=== PATIENT | female | born 1965 | race Caucasian/White ===

== ENCOUNTER 2017-08-19 08:43 | Day surgery (SDC) | payer BC ==
[2017-08-17 14:51] VITALS: BMI 42.0
[~2017-08-19 08:43] MED LIST: LACTATED RINGERS 1,000 ML IV SCH; LIDOCAINE 1% 20 ML VIAL (10MG/ML) FOR IV START INTRADERMA PRN
[2017-08-19 09:07] VITALS: RESP 16; TEMP 99.2
--- NOTE | 2017-08-19 09:17 | P.GSHP ---
History of Present Illness H&P Date: 08/19/17 CHIEF COMPLAINT: Colon screen HISTORY OF PRESENT ILLNESS: The patient is a 51-year-old female who presents for colon screen. Lower endoscopy was offered for further evaluation and management. PAST MEDICAL HISTORY: Please see list. PAST SURGICAL HISTORY: Please see list. MEDICATIONS: Please see list. ALLERGIES: Please see list. SOCIAL HISTORY: No illicit drug use FAMILY HISTORY: No reports of Crohn disease or ulcerative colitis. REVIEW OF ORGAN SYSTEMS: CONSTITUTIONAL: No reports of fevers or chills. PHYSICAL EXAM: VITAL SIGNS: Stable GENERAL: Well-developed pleasant in no acute distress. HEENT: No scleral icterus. Extraocular movements grossly intact. Moist buccal mucosa. NECK: Supple without lymphadenopathy. CHEST: Unlabored respirations. Equal bilateral excursions. CARDIOVASCULAR: Regular rate and rhythm. Distal 2+ pulses. ABDOMEN: Soft, nontender, nondistended. MUSCULOSKELETAL: No clubbing, cyanosis, or edema. ASSESSMENT: 1. Colon screen. PLAN: 1. Recommend proceeding with a lower endoscopy Past Medical History Past Medical History: GERD/Reflux, Rheumatoid Arthritis (RA) History of Any Multi-Drug Resistant Organisms: None Reported Past Surgical History: Breast Surgery, Cholecystectomy, Uterine Ablation Past Anesthesia/Blood Transfusion Reactions: No Reported Reaction Smoking Status: Former smoker - Past Family History Father Family Medical History: Cancer Additional Family Medical History / Comment(s): MELENOMA Medications and Allergies Home Medications Medication Instructions Recorded Confirmed Type Cholecalciferol (Vitamin D3) 10,000 unit PO DAILY 08/17/17 08/19/17 History [Vitamin D3] Folic Acid 1 mg PO DAILY 08/17/17 08/19/17 History Methotrexate Sodium [Methotrexate] 15 mg PO FR 08/17/17 08/19/17 History Allergies Allergy/AdvReac Type Severity Reaction Status Date / Time No Known Allergies Allergy Verified 08/19/17 09:09 Surgical - Exam Vital Signs Temp Pulse Resp BP Pulse Ox 99.2 F 93 16 126/77 96 08/19/17 09:06 08/19/17 09:06 08/19/17 09:06 08/19/17 09:06 08/19/17 09:06
[2017-08-19] MEDS ORDERED: LIDOCAINE 1% INJ 10MG/ML (20 ML MDV) ONE (09:20)
[2017-08-19] MEDS ORDERED: PROPOFOL 10 MG/ML 20 ML VIAL IV ONE (09:20)
--- NOTE | 2017-08-19 09:41 | P.PCN ---
Date of Procedure: 08/19/17 Description of Procedure: PREOPERATIVE DIAGNOSIS: Colonoscopy screening. POSTOPERATIVE DIAGNOSIS: Colonoscopy screening. Villous adenoma, hepatic flexure. Diverticulosis, multiple. OPERATION: Colonoscopy to the ileocecal valve and appendiceal orifice. Colonoscopy with hot snare polypectomy. SURGEON: Marielos Macedo MD. ANESTHESIA: MAC. INDICATIONS: The patient is a 51-year-old female who presents for her first colonoscopy screening. Benefits and risks were described and informed consent was obtained. DESCRIPTION OF PROCEDURE: The patient had undergone Gatorade, MiraLAX and Dulcolax prep. She had been brought into the operating room and laid in the left lateral decubitus position. After adequate intravenous sedation, the rectum was examined with 2% lidocaine jelly. No external hemorrhoids were encountered. The rectal tone was within normal limits. No lesions were palpated in the rectal vault. An Olympus colonoscope was advanced until the ileocecal valve and appendiceal orifice were clearly viewed. The prep was fair with visualization of the mucosal folds. The scope was removed with visualization of each mucosal fold. Scattered diverticulosis was encountered. Villous adenoma, 10mm, at the hepatic flexure was snare polypectomy. No evidence of focal colitis was found. Retroflexion of the scope demonstrated no grade 1 internal hemorrhoids. The colon was desufflated. The patient had tolerated the procedure well. Withdrawal time was over 6 minutes. FINDINGS: No inflamed internal hemorrhoids. No inflamed external hemorrhoids. No arteriovenous malformations. Multiple scattered diverticulosis. Removal of 1 polyp: - Snare polypectomy at hepatic flexure, 10 mm villous adenoma polyp. No focal colitis. RECOMMENDATIONS: Recommend repeat colonoscopy 2 years, 2019. Plan - Discharge Summary New Discharge Prescriptions: No Action Folic Acid 1 mg PO DAILY Cholecalciferol (Vitamin D3) [Vitamin D3] 10,000 unit PO DAILY Methotrexate Sodium [Methotrexate] 15 mg PO FR Discharge Medication List Cholecalciferol (Vitamin D3) [Vitamin D3] 10,000 unit PO DAILY 08/17/17 [History ] Folic Acid 1 mg PO DAILY 08/17/17 [History] Methotrexate Sodium [Methotrexate] 15 mg PO FR 08/17/17 [History]
[2017-08-19 10:08] VITALS: BP 133/78; PULSE 76
--- NOTE | 2017-09-15 13:24 | P.PN ---
Progress Note - Text Progress Note Date: 09/15/17 Patient called about results of pathology and need for repeat colonoscopy for high risk polyps. Risks and complications of diverticulosis explained.
== END 2017-08-19 10:11 | disposition home or self-care (01) ==
LOC: ORWHC2ENDO 08:43
PROVIDERS: ATTEND Surgery Plastic and Reconstructive Surgery
DX: Z12.11 Encounter for screening for malignant neoplasm of colon (principal); K57.30 Diverticulosis of large intestine without perforation or abscess without bleeding; D12.3 Benign neoplasm of transverse colon; M06.9 Rheumatoid arthritis, unspecified; Z87.891 Personal history of nicotine dependence; E66.9 Obesity, unspecified; Z68.41 Body mass index [BMI] 40.0-44.9, adult; Z79.899 Other long term (current) drug therapy
CPT/HCPCS: 81025; 88305; 45385; J2001; J2704

== ENCOUNTER → 2018-03-16 | Outpatient (CLI) | payer BC ==
--- NOTE | 2018-03-17 11:44 | MM ---
Reason for exam: screening (asymptomatic). Last mammogram was performed 2 years and 1 month ago. History: Family history of breast cancer in 3 aunts. Benign US biopsy breast VAD LT of the left breast, February 21, 2016. Stereotactic core biopsy of the right breast, July 21, 2003. Benign excisional biopsy of the right breast, 1994. Physical Findings: A clinical breast exam by your physician is recommended on an annual basis and results should be correlated with mammographic findings. MG Screening Mammo w CAD Bilateral CC and MLO view(s) were taken. Prior study comparison: February 21, 2016, left breast MG diagnostic mammo LT wo CAD. February 15, 2016, left breast MG work up mamm w CAD LT. The breast tissue is heterogeneously dense. This may lower the sensitivity of mammography. Previous mammotome biopsy in the left breast. There is chronic nodularity bilaterally. Developing asymmetry in the right breast on several levels. Left questionable new obscured nodularity. ASSESSMENT: Incomplete: need additional imaging evaluation, BI-RAD 0 RECOMMENDATION: Special view mammogram of the right breast. Ultrasound of the left breast. [facility] will attempt to contact patient to return for supplemental views and ultrasound.
== END ==
LOC: RADMAMWWP 10:15
PROVIDERS: ATTEND Family Medicine
DX: Z12.31 Encounter for screening mammogram for malignant neoplasm of breast (principal)
CPT/HCPCS: 77067

== ENCOUNTER → 2018-03-22 | Outpatient (CLI) | payer BC ==
--- NOTE | 2018-03-22 12:24 | CT ---
EXAMINATION TYPE: CT chest w con DATE OF EXAM: 03/22/2018 COMPARISON: 06/26/2016 HISTORY: Lymphadenopathy CT DLP: 732 mGycm Automated exposure control for dose reduction was used. CONTRAST: CT scan of the chest is performed with IV Contrast, patient injected with 100 mL of Isovue 300. FINDINGS: LUNGS: The lungs are grossly clear, there is no concerning parenchymal mass or nodule identified. T here is no pleural effusion or pneumothorax seen. The tracheobronchial tree is patent. 2 mm pleural- based nodule right upper lobe. 2 mm nodule pleural based left upper lobe. 2 mm nodule or segment left upper lobe. Along the right lung base near the diaphragm there is a 3 mm pulmonary nodule. MEDIASTINUM: There are no greater than 1 cm hilar or mediastinal lymph nodes. No pericardial effusi on is seen. OTHER: Postcholecystectomy changes are seen. Liver slightly reduced in attenuation correlate for hep atic steatosis. Small hiatal hernia noted. Hypertrophic change of the vertebral column. Subcentimeter right thyroid nodule noted. IMPRESSION: 1. No evidence of pathologic adenopathy or consolidation. 2. There are multiple less than 5 mm pulmonary nodules which are too small to characterize. Recommend 6 month follow-up to confirm stability.
== END | disposition home or self-care (01) ==
LOC: RADCTMAIN 11:16
PROVIDERS: ATTEND Family Medicine
DX: R91.8 Other nonspecific abnormal finding of lung field (principal); R07.89 Other chest pain
CPT/HCPCS: 71260; Q9967

== ENCOUNTER → 2018-03-25 | Outpatient (CLI) | payer BC ==
--- NOTE | 2018-03-25 13:09 | US ---
EXAMINATION TYPE: US thyroid st tissue head/neck DATE OF EXAM: 03/25/2018 COMPARISON: Correlation CT 03/22/2018 CLINICAL HISTORY: 52-year-old female E04.1 Thyroid Nodule. TECHNIQUE: Multiple sonographic images of the thyroid gland are obtained. FINDINGS: GLAND SIZE: Right Lobe: 4.1 x 1.3 x 1.5 cm Overall Parenchyma: homogenous Left Lobe: 3.8 x 1.3 x 0.8 cm Overall Parenchyma: homogeneous Isthmus Thickness: 0.3 cm NODULES RIGHT: # of nodules measured on right: 1 1. 1.6 X 1.0 x 1.3 cm solitary solid nodule at the mid to lower pole with well-defined margins. The re is associated vascularity. LEFT: # of nodules measured on left: 0 ISTHMUS: # of nodules measured in the isthmus: 0 Bilateral neck scanned, no evidence of lymphadenopathy. IMPRESSION: Solitary solid 1.6 cm nodule in the right lobe. Correlate with TFTs. FNA as clinically indicated.
--- NOTE | 2018-03-25 14:25 | MM ---
Reason for exam: additional evaluation requested from abnormal screening. Last mammogram was performed less than 1 month ago. History: Family history of breast cancer in paternal aunt at age 65 and breast cancer in maternal aunt at age 55. Benign US biopsy breast VAD LT of the left breast, February 21, 2016. Stereotactic core biopsy of the right breast, July 21, 2003. Benign excisional biopsy of the right breast, 1994. Took hormonal contraceptives for 8 years beginning at age 20. Physical Findings: Nurse did not find any significant physical abnormalities on exam. MG Work Up Mamm w CAD RT Spot compression CC, spot compression MLO, and ML view(s) were taken of the right breast. Prior study comparison: March 16, 2018, bilateral MG screening mammo w CAD. February 21, 2016, left breast MG diagnostic mammo LT wo CAD. There are scattered fibroglandular densities. Two areas of lateral upper outer quadrant nodularity and one area just medial to the next areolar plane on CC either persist or partially disperse. These results were verbally communicated with the patient and result sheet given to the patient on 03/25/18. ASSESSMENT: Incomplete: need additional imaging evaluation, BI-RAD 0 RECOMMENDATION: Ultrasound of both breasts. (right 9-12 o'clock, left upper outer quadrant)
--- NOTE | 2018-03-25 14:29 | USB ---
Reason for exam: additional evaluation requested from abnormal screening. History: Family history of breast cancer in paternal aunt at age 65 and breast cancer in maternal aunt at age 55. Benign US biopsy breast VAD LT of the left breast, February 21, 2016. Stereotactic core biopsy of the right breast, July 21, 2003. Benign excisional biopsy of the right breast, 1994. Took hormonal contraceptives for 8 years beginning at age 20. US Breast Workup Limited LUIS DANIEL Right limited breast ultrasound including focal area of concern, retroareolar and axilla demonstrates a 0.4 x 0.3 x 0.2cm lesion too small to characterize at 10 o'clock, a 0.4 x 0.2 x 0.4cm lesion too small to characterize at 1 o'clock and a 0.5 x 0.3 x 0.4cm mixed lesion at 9 o'clock, vertically oriented for which a biopsy is recommended. Left limited breast ultrasound including focal area of concern, retroareolar and axilla demonstrates a 0.5 x 0.3 x 0.7cm mixed, probably cystic lesion at 1 o'clock, a 0.8 x 0.3 x 1.0cm mixed lesion at the axilla tail and a 0.4 x 0.4 x 0.4cm mixed, probably cystic lesion at 1 o'clock. These results were verbally communicated with the patient and result sheet given to the patient on 03/25/18. ASSESSMENT: Suspicious, BI-RAD 4 RECOMMENDATION: Surgical consultation and ultrasound core biopsy of the right breast. Called Dr. Patel with mammographic findings and has scheduled an appointment for the patient for 04/14/18 at 4:[address] Jiménez. Biopsy scheduled for 04/05/18 at 12:20. PRELIMINARY REPORT CALLED AND FAXED TO DR. JIMÉNEZ ON 03/25/18.
== END | disposition home or self-care (01) ==
LOC: RADMAMWWP 07:07
PROVIDERS: ATTEND Family Medicine
DX: R92.8 Other abnormal and inconclusive findings on diagnostic imaging of breast (principal); E04.1 Nontoxic single thyroid nodule
CPT/HCPCS: 76536; 77065

== ENCOUNTER → 2018-04-05 | Day surgery (SDC) | payer BC ==
[2018-04-05 12:01] VITALS: BP 125/82; PULSE 69; RESP 18; TEMP 98.3; BMI 42.5
--- NOTE | 2018-04-05 13:27 | USB ---
EXAMINATION TYPE: US discontinued breast bx RT DATE OF EXAM: 04/05/2018 COMPARISON: 03/25/2018 HISTORY: Right breast mass at 9:00 for which percutaneous biopsy was recommended. TECHNIQUE: Limited grayscale imaging of the right breast. FINDINGS: Preprocedural imaging of the right breast at the 9:00 and 10:00 locations fail to demonstra te an reproduce the previously seen 0.5 x 0.3 x 0.4 cm mixed mass at the 9:00 position within an anti parallel orientation. Shadowing may have been related to crossing ligaments at this location as the s pleen was documented on preprocedural scan and images 13 through 17. This was seen on real-time exami nation with no suspicious mass persisting. This was discussed with the patient and the patient descri bes another prior discontinued breast biopsy. IMPRESSION: BI-RADS 3-probably benign. No reproducible suspicious mass. Precautionary short-term fol low-up 3 month ultrasound is recommended in the right upper outer quadrant to ensure no reproducible mass.
== END ==
LOC: RADUSWWP 11:31
PROVIDERS: ATTEND Surgery
DX: Z53.8 Procedure and treatment not carried out for other reasons (principal)

== ENCOUNTER → 2018-04-12 | Outpatient (CLI) | payer BC ==
--- NOTE | 2018-04-12 19:11 | CT ---
EXAMINATION TYPE: CT abdomen pelvis w con DATE OF EXAM: 04/12/2018 COMPARISON: None HISTORY: Abdominal pain, nausea and fever x3 days ago CT DLP: 1702.6 mGycm Automated exposure control for dose reduction was used. TECHNIQUE: Helical acquisition of images was performed from the lung bases through the pelvis. CONTRAST: Performed with Oral Contrast and with IV Contrast, patient injected with 100 mL of Isovue 3 00. FINDINGS: LUNG BASES: No significant abnormality is appreciated. LIVER/GB: No significant abnormality is appreciated. PANCREAS: No significant abnormality is seen. SPLEEN: No significant abnormality is seen. ADRENALS: No significant abnormality is seen. KIDNEYS: No significant abnormality is seen. FREE AIR: No free air is visualized. RETROPERITONEAL ADENOPATHY: None visualized REPRODUCTIVE ORGANS: No significant abnormality is seen URINARY BLADDER: No significant abnormality is seen. PELVIC ADENOPATHY: None visualized. OSSEOUS STRUCTURES: No significant abnormality is seen. BOWEL: There is pericolonic edematous reticulation involving the proximal sigmoid with numerous dive rticula noted. There is indistinct circumferential mural thickening of the proximal sigmoid. The zone of surrounding inflammatory change measures approximately 4 cm diameter. There is no bowel obstructi on. No abnormal fluid or gas collection. If there has not been a recent colonoscopy, eventual follow- up will be useful to assess the underlying mucosa. OTHER: Vasculature is unremarkable. IMPRESSION: FINDINGS CONSISTENT WITH ACUTE MILD-MODERATE PROXIMAL SIGMOID DIVERTICULITIS.
== END | disposition home or self-care (01) ==
LOC: RADCTMAIN 16:24
PROVIDERS: ATTEND Physician Assistant
DX: R10.9 Unspecified abdominal pain (principal)
CPT/HCPCS: 74177; Q9967

== ENCOUNTER → 2018-05-06 | Outpatient (CLI) | payer BC ==
--- NOTE | 2018-05-06 13:32 | CT ---
EXAMINATION TYPE: CT soft tissue neck w con DATE OF EXAM: 05/06/2018 COMPARISON: HISTORY: Neck swelling marked by BB CT DLP: 794 mGycm CONTRAST: Patient injected with 100 mL of Isovue 300. TECHNIQUE: Axial images at 3 mm thick sections. Reconstructed images in the coronal plane and sagitt al plane are reviewed. FINDINGS: Limited CT sections are obtained the lung apices. The lung apices appear clear. CT neck: At the level marked by the BB on the lower right anterior neck this appears to lie at the in ferior right lobe thyroid level. No underlying suspicious mass is identified. Subcutaneous tissues ap pear normal. The torus tubarius and fossa of Rosenmuller are normal. Director Of Midwifery/Staff Midwife spaces are normal. Paranasal sin uses and mastoid air cells are clear. Parotid glands appear normal and symmetrical. Submandibular glands, are normal. Parapharyngeal spac es are normal. No suspicious adenopathy is evident. The hypopharynx appears within normal limits. Vocal cord level appear symmetrical. There is a hypodensity within the mid right lobe thyroid. This is approximately 0.3 cm in diameter. S ubglottic airway appears unremarkable. Osseous structures are normal. IMPRESSIONS: 1. Unremarkable soft tissue neck.
== END | disposition home or self-care (01) ==
LOC: RADCTMAIN 08:18
PROVIDERS: ATTEND Surgery Plastic and Reconstructive Surgery
DX: R22.1 Localized swelling, mass and lump, neck (principal)
CPT/HCPCS: 70491; Q9967

== ENCOUNTER 2018-05-28 13:05 | Day surgery (SDC) | payer BC ==
[2018-05-28 13:48] VITALS: TEMP 97.8
[2018-05-28 14:17] VITALS: BP 114/58; PULSE 62; RESP 14
--- NOTE | 2018-05-31 10:29 | US ---
ULTRASOUND GUIDED FNA THYROID BIOPSY: CLINICAL HISTORY: Right thyroid nodule FINDINGS: The procedure was explained to the patient. The risks, complications, benefits and alternatives were discussed and any questions were answered. Informed consent was obtained. Patient was placed supin e on the ultrasound table and prepped and draped in the usual sterile fashion. Utilizing a 25 gauge needle, five passes were made into the requested right thyroid nodule. Patient was stable throughout the procedure. Pathology is pending. All elements of maximal barrier technique were utilized. IMPRESSION: 1. Successful ultrasound guided FNA thyroid biopsy.
== END 2018-05-28 14:10 | disposition home or self-care (01) ==
LOC: RADPROMAIN 13:05
PROVIDERS: ATTEND Surgery Plastic and Reconstructive Surgery
DX: E04.1 Nontoxic single thyroid nodule (principal)
CPT/HCPCS: 10022; 76942; 88173; 88305

== ENCOUNTER → 2019-03-29 | Outpatient (CLI) | payer BC ==
--- NOTE | 2019-03-29 11:45 | MM ---
Reason for exam: additional evaluation requested from prior study. Last mammogram was performed 1 year ago. History: Patient is postmenopausal. Family history of breast cancer in paternal aunt at age 65 and breast cancer in maternal aunt at age 55. US discontinued breast bx RT of the right breast, April 05, 2018. Benign US biopsy breast VAD LT of the left breast, February 21, 2016. Stereotactic core biopsy of the right breast, July 21, 2003. Benign excisional biopsy of the right breast, 1994. Took hormonal contraceptives for 8 years beginning at age 20. Physical Findings: Nurse did not find any significant physical abnormalities on exam. MG Diagnostic Mammo w CAD LUIS DANIEL Bilateral CC and MLO view(s) were taken. Prior study comparison: March 25, 2018, right breast MG work up mamm w CAD RT. March 16, 2018, bilateral MG screening mammo w CAD. There are scattered fibroglandular densities. Previous mammotome biopsy in the left breast. There is chronic nodularity in the right breast. No significant new findings when compared with previous films. These results were verbally communicated with the patient and result sheet given to the patient on 03/29/19. ASSESSMENT: Benign, BI-RAD 2 RECOMMENDATION: Routine screening mammogram of both breasts in 1 year.
== END | disposition home or self-care (01) ==
LOC: RADMAMWWP 10:56
PROVIDERS: ATTEND Family Medicine
DX: R92.8 Other abnormal and inconclusive findings on diagnostic imaging of breast (principal)
CPT/HCPCS: 77066

== ENCOUNTER → 2019-08-18 | Outpatient (CLI) | payer BC ==
--- NOTE | 2019-08-18 14:44 | CT ---
EXAMINATION TYPE: CT brain wo con DATE OF EXAM: 08/18/2019 COMPARISON: None INDICATION: Dizziness, light-headed xcouple days DLP: 1192 mGycm, Automated exposure control for dose reduction was used. CONTRAST: None CT of the brain is performed utilizing 3 mm thick sections through the posterior fossa and 3 mm thick sections through the remaining calvarium. Study is performed within 24 hours of arrival to the hosp [facility]. No abnormal hyperdensity is present to suggest an acute intracranial hemorrhage. No mass lesion is evident. No acute infarcts are evident. Ventricles and sulci are appropriate for the patient age. Paranasal sinuses and mastoid air cells within the [id number] are clear. IMPRESSIONS: 1. Normal CT Brain
== END | disposition home or self-care (01) ==
LOC: RADCTMAIN 14:17
PROVIDERS: ATTEND Family Medicine
DX: R42 Dizziness and giddiness (principal)
CPT/HCPCS: 70450

== ENCOUNTER → 2020-05-10 | Outpatient (CLI) | payer BC ==
--- NOTE | 2020-05-10 13:41 | CT ---
"EXAMINATION TYPE: CT abdomen pelvis w con DATE OF EXAM: 05/10/2020 HISTORY: Abdominal pain CT DLP: 1651mGycm Automated Exposure Control for Dose Reduction was Utilized. CONTRAST: CT scan of the abdomen and pelvis is performed with oral and with IV Contrast, patient injected with 100 ml mL of Isovue 300. COMPARISON: Prior CT April 12, 2018 FINDINGS: LUNG BASES: No significant abnormality is appreciated. LIVER/GB: Cholecystectomy clips are redemonstrated. PANCREAS: No significant abnormality is seen. SPLEEN: No significant abnormality is seen. ADRENALS: No significant abnormality is seen. KIDNEYS: Symmetric cortical medullary uptake and excretion without new concerning renal mass or hydro nephrosis seen bilaterally. Stable 1.3 cm benign thin-walled cyst right kidney laterally midpole leve l. BOWEL: Oral contrast reaches level of proximal transverse colon. No suspicious small or large bowel d ilatation. Distal colonic diverticula are present. Mild fat stranding is noted in the left pelvis axi al image 76. No free air. No well-formed fluid collection. UTERUS/ADNEXA: Uterus projects to left of midline similar to prior. The remnant ovaries are nonenlarg ed. LYMPH NODES: No greater than 1cm abdominal or pelvic lymph nodes are appreciated. OSSEOUS STRUCTURES: No significant abnormality is seen. OTHER: Tiny fat-containing umbilical hernia. IMPRESSION: Suspect mild or early uncomplicated acute diverticulitis in the proximal to mid sigmoid c olon of the anterior left pelvis. This is less prominent than the 2018 CT. Correlate clinically. A Yellow level critical message alert has been initiated for Dieudonne Patel MD via the [employer] 36 0 | Critical Results System on 05/10/2020 1:39 PM. This message alert has been sent to Dieudonne Patel MD via the preferences provided by the clinician for the receipt of Radiology Critical Findings. Mt ssage ID [id number]."
== END | disposition home or self-care (01) ==
LOC: RADCTMAIN 10:07
PROVIDERS: ATTEND Family Medicine
DX: R10.9 Unspecified abdominal pain (principal)
CPT/HCPCS: 74177; Q9967

== ENCOUNTER → 2020-06-04 | Outpatient (CLI) | payer BC ==
--- NOTE | 2020-06-04 13:25 | P.STRESS ---
- Stress Test Note Stress Test Results/Findings: Exam Performed: stress echo exercise with con Exam Date: 06/04/20 Reason for Exam: CP Height: 5 ft 3 in Weight: 250 kg Protocol: STRESS ECHO Stage: II Duration of Exercise: 5 Resting Heart Rate: 70 Resting Blood Pressure: 133/57 Maximum Achieved Heart Rate: 156 Maximum Achieved Blood Pressure: 135/57 85% PMHR: 142 100% PMHR: 167 METS: 7 Technologist Comment: Stress Test Results/Findings: Patient underwent exercise stress echo with a Shahriar protocol treadmill stress test. Patient exercised into Stage 2 for a total of 5 minutes reaching a total of 7.0 METS. Patient's maximum heart rate was 156 which represented 93 % age- predicted maximum heart rate. Stress EKG portion: At baseline patient's EKG showed normal sinus rhythm, normal axis, no significant ST or T-wave abnormalities.. At peak exercise, EKG showed rare PVCs, no significant change from baseline. Stress echo portion: 2-D echocardiogram was performed in the parasternal long, personal short, apical 2 and apical four-chamber views at rest, peak exercise and in recovery. At baseline, echocardiogram showed left ventricular ejection fraction 60% without wall motion abnormalities. With peak exercise, echocardiogram shows improvement in left ventricular ejection fraction, increase contractility, decrease in left ventricular dimension without wall motion abnormalities consistent with a normal response to exercise. Conclusions: 1. Normal EKG and echo response to exercise without evidence of inducible ischemia. 2. Limited exercise capacity.
== END | disposition home or self-care (01) ==
LOC: RADNMMAIN 08:37
PROVIDERS: ATTEND Family Medicine
DX: R07.9 Chest pain, unspecified (principal)
CPT/HCPCS: 93351; Q9950

== ENCOUNTER → 2020-06-04 | Outpatient (CLI) | payer BC ==
--- NOTE | 2020-06-04 09:47 | MM ---
Reason for exam: screening (asymptomatic). Last mammogram was performed 1 year and 2 months ago. History: Patient is postmenopausal. Family history of breast cancer in paternal aunt at age 65 and breast cancer in maternal aunt at age 55. US discontinued breast bx RT of the right breast, April 05, 2018. Benign US biopsy breast VAD LT of the left breast, February 21, 2016. Stereotactic core biopsy of the right breast, July 21, 2003. Benign excisional biopsy of the right breast, 1994. Took hormonal contraceptives for 8 years beginning at age 20. Physical Findings: A clinical breast exam by your physician is recommended on an annual basis and results should be correlated with mammographic findings. MG Screening Mammo w CAD Bilateral CC and MLO view(s) were taken. Prior study comparison: March 29, 2019, bilateral MG diagnostic mammo w CAD LUIS DANIEL. March 25, 2018, right breast MG work up mamm w CAD RT. February 12, 2016, bilateral MG screening mammo w CAD. The breast tissue is heterogeneously dense. This may lower the sensitivity of mammography. Finding: There are increased in number dystrophic, round, grouped/clustered calcifications in the right breast at site of chronic nodularity. Previous mammotome biopsy in the left breast. There is a chronic nodularity bilaterally. There is no new dominant lesion. ASSESSMENT: Benign, BI-RAD 2 RECOMMENDATION: Routine screening mammogram of both breasts in 1 year.
== END | disposition home or self-care (01) ==
LOC: RADMAMWWP 08:10
PROVIDERS: ATTEND Family Medicine
DX: Z12.31 Encounter for screening mammogram for malignant neoplasm of breast (principal)
CPT/HCPCS: 77067

== ENCOUNTER → 2020-07-31 | Outpatient (CLI) | payer BC ==
--- NOTE | 2020-07-31 11:29 | BD ---
EXAMINATION TYPE: Axial Bone Density DATE OF EXAM: 07/31/2020 COMPARISON: NONE CLINICAL HISTORY: Height: 61.5 IN Weight: 245 LBS FRAX RISK QUESTIONS: Secondary Osteoporosis: 3. Menopause before 45: AGE 44 Rheumatoid Arthritis: YES RISK FACTORS HISTORY OF: Active: YES Postmenopausal woman: AGE 44 MEDICATIONS: Additional Medications: VIT D, METHOTREXATE, HEARTBURN MEDS EXAM MEASUREMENTS: Bone mineral densitometry was performed using the [employer] System. Bone mineral density as measured about the Lumbar spine is: ----- L1-L4(G/cm2): 1.302 T Score Values are as follows: ----- L2: 1.2 ----- L3: 1.5 ----- L4: 1.2 ----- L1-L4: 1.0 Bone mineral density BASELINE Bone mineral density about the R hip (g/cm2): 0.987 Bone mineral density about the L hip (g/cm2): 0.933 T Score values are as follows: -----R Neck: -0.4 -----L Neck: -0.8 -----R Total: -0.1 -----L Total: -0.1 Bone mineral density BASELINE IMPRESSION: No evidence for osteoporosis or osteopenia. NOTE: T-SCORE=SD OF THE YOUNG ADULT MEAN.
== END | disposition home or self-care (01) ==
LOC: RADBDWWP 08:08
PROVIDERS: ATTEND Family Medicine
DX: Z78.0 Asymptomatic menopausal state (principal)
CPT/HCPCS: 77080

== ENCOUNTER → 2021-02-12 | Outpatient (CLI) | payer BC ==
[2021-02-12 15:26] LABS: African American GFR (CKD) >90 (>60 ml/min/1.73 sqM); Blood Urea Nitrogen 19 mg/dL (7-17); Non-African American GFR(CKD) 88 (>60 ml/min/1.73 sqM)
--- NOTE | 2021-02-13 07:51 | CT ---
EXAMINATION TYPE: CT urogram wo/w con DATE OF EXAM: 02/12/2021 HISTORY: renal cysts order. Prior abnormal CT. CT DLP: 3945mGycm Automated Exposure Control for Dose Reduction was Utilized. CONTRAST: CT scan of the abdomen and pelvis is performed without oral and without and with IV Contrast, patient injected with 100 mL of Isovue 300. Urogram protocol as requested. 3-D reconstructed images created on a independent workstation and reviewed. COMPARISON: Old CT abdomen and pelvis studies 2019 and 2017 FINDINGS: KUB: Noncontrast images show no renal calculi bilaterally. Postcontrast images show symmetric cortica l medullary uptake and excretion. There is 1.6 cm simple-appearing thin-walled cyst in the right kidn ey laterally midpole level coronal image 41 stable or slightly more prominent from prior studies. No new solid or cystic masses present. No hydronephrosis noted bilaterally. Satisfactory contrast opacif ication of the ureters without concerning obstructing calculus or filling defect. Satisfactory fillin g of the bladder without intraluminal calculus or mass LUNG BASES: No significant abnormality is appreciated. LIVER/GB: No significant abnormality is appreciated. PANCREAS: No significant abnormality is seen. SPLEEN: No significant abnormality is seen. ADRENALS: No significant abnormality is seen. KIDNEYS: No significant abnormality is seen. BOWEL: Scattered colonic diverticula greatest in the sigmoid colon. No CT evidence for acute divertic ulitis. Incidental normal-appearing appendix from cecum. UTERUS/ADNEXA: No gross abnormality seen. LYMPH NODES: No greater than 1cm abdominal or pelvic lymph nodes are appreciated. OSSEOUS STRUCTURES: No significant abnormality is seen. OTHER: No significant additional abnormality is seen. IMPRESSION: Stable or slightly larger but simple 1.6 cm benign thin-walled cyst right kidney laterall y midpole level. No new suspicious mass on urogram study.
== END | disposition home or self-care (01) ==
LOC: RADCTMAIN 14:48
PROVIDERS: ATTEND Urology
DX: N28.1 Cyst of kidney, acquired (principal)
CPT/HCPCS: 82565; 84520; 74178; 36415; 74400; Q9967

== ENCOUNTER → 2021-08-16 | Outpatient (CLI) | payer BC ==
[2021-08-17 14:29] LABS: Coronavirus SARS CoV-2 Not Detected (Not Detected)
== END | disposition home or self-care (01) ==
LOC: LABPAT 14:46
PROVIDERS: ATTEND Surgery Plastic and Reconstructive Surgery
DX: Z20.822 Contact with and (suspected) exposure to COVID-19 (principal)
CPT/HCPCS: U0003; U0005

== ENCOUNTER 2021-08-21 08:09 | Day surgery (SDC) | payer BC ==
[2021-08-19 08:39] VITALS: BMI 38.9
--- NOTE | 2021-08-21 04:23 | P.GSHP ---
History of Present Illness H&P Date: 08/21/21 CHIEF COMPLAINT: Colon screen HISTORY OF PRESENT ILLNESS: The patient is a 55-year-old female who presents for colon screen. Lower endoscopy was offered for further evaluation and management. PAST MEDICAL HISTORY: Please see list. PAST SURGICAL HISTORY: Please see list. MEDICATIONS: Please see list. ALLERGIES: Please see list. SOCIAL HISTORY: No illicit drug use FAMILY HISTORY: No reports of Crohn disease or ulcerative colitis. REVIEW OF ORGAN SYSTEMS: CONSTITUTIONAL: No reports of fevers or chills. PHYSICAL EXAM: VITAL SIGNS: Stable GENERAL: Well-developed pleasant in no acute distress. HEENT: No scleral icterus. Extraocular movements grossly intact. Moist buccal mucosa. NECK: Supple without lymphadenopathy. CHEST: Unlabored respirations. Equal bilateral excursions. CARDIOVASCULAR: Regular rate and rhythm. Distal 2+ pulses. ABDOMEN: Soft, nontender, nondistended. MUSCULOSKELETAL: No clubbing, cyanosis, or edema. ASSESSMENT: 1. Colon screen. PLAN: 1. Recommend proceeding with a lower endoscopy Past Medical History Past Medical History: GERD/Reflux, Rheumatoid Arthritis (RA) Additional Past Medical History / Comment(s): diverticulitis History of Any Multi-Drug Resistant Organisms: None Reported Past Surgical History: Breast Surgery, Cholecystectomy, Uterine Ablation Additional Past Surgical History / Comment(s): 2015-benign us core bx left breast. 2003-benign stereo bx right breast. 1994-benign excisional biopsy right breast. Past Anesthesia/Blood Transfusion Reactions: No Reported Reaction Past Psychological History: No Psychological Hx Reported Smoking Status: Former smoker Past Alcohol Use History: Occasional Additional Past Alcohol Use History / Comment(s): STARTED SMOKING AT AGE 18 QUIT AT AGE 28 SMOKED 1 PACK PER WEEK Past Drug Use History: None Reported - Past Family History Father Family Medical History: Cancer Additional Family Medical History / Comment(s): MELENOMA Medications and Allergies Home Medications Medication Instructions Recorded Confirmed Type metHOTREXate sodium [Methotrexate] 0 mg PO WEEKLY 08/17/17 08/19/21 History Omeprazole 0 mg PO DAILY 08/19/21 08/19/21 History Allergies Allergy/AdvReac Type Severity Reaction Status Date / Time No Known Allergies Allergy Verified 08/19/21 08:33
[~2021-08-21 08:09] MED LIST changes: +LIDOCAINE 1% (10MG/ML) FOR IV START INTRADERMA PRN; -LIDOCAINE 1% 20 ML VIAL (10MG/ML) FOR IV START INTRADERMA PRN
[2021-08-21 08:52] VITALS: TEMP 98.5
[2021-08-21] MEDS ORDERED: fentaNYL (PF) 50 MCG/ML 2 ML AMP ONE (09:33)
[2021-08-21] MEDS ORDERED: LIDOCAINE 1% INJ 10MG/ML (20 ML MDV) ONE (09:33)
[2021-08-21] MEDS ORDERED: PROPOFOL 10 MG/ML 20 ML VIAL IV ONE (09:33)
--- NOTE | 2021-08-21 10:03 | P.PCN ---
Date of Procedure: 08/21/21 Description of Procedure: PREOPERATIVE DIAGNOSIS: Personal history colon polyps Colonoscopy screening. POSTOPERATIVE DIAGNOSIS: Personal history colon polyps Colonoscopy screening. Diverticulosis, scattered. OPERATION: Colonoscopy to the ascending colon SURGEON: Marielos Macedo MD. ANESTHESIA: MAC. INDICATIONS: The patient is a 55-year-old female who presents for colonoscopy screening. Last colonoscopy Benefits and risks were described and informed consent was obtained. DESCRIPTION OF PROCEDURE: The patient had undergone Sutab prep. The patient had been brought into the operating room and laid in the left lateral decubitus position. After adequate intravenous sedation, the rectum was examined with 2% lidocaine jelly. No external hemorrhoids were encountered. The rectal tone was within normal limits. No lesions were palpated in the rectal vault. An Olympus colonoscope was advanced until the cecum, ileocecal valve and appendiceal orifice were clearly viewed. The prep was excellent. Scattered diverticulosis was encountered. No colonic polyps were found. No evidence of focal colitis was found. Retroflexion of the scope demonstrated grade 1 internal hemorrhoids without active bleeding or inflammation. The colon was desufflated. The patient had tolerated the procedure well. Withdrawal time was over 6 minutes. FINDINGS: Aronchick preparation quality scale 1 (1-5) Internal hemorrhoids, grade 1 Highly redundant sigmoid colon No external prolapsed hemorrhoids. No arteriovenous malformations. No adenomatous polyps. No focal colitis. RECOMMENDATIONS: Lower endoscopy in 2026 Plan - Discharge Summary Discharge Rx Participant: No New Discharge Prescriptions: Continue metHOTREXate sodium [Methotrexate] 0 mg PO WEEKLY Omeprazole 0 mg PO DAILY Discharge Medication List metHOTREXate sodium [Methotrexate] 0 mg PO WEEKLY 08/17/17 [History] Omeprazole 0 mg PO DAILY 08/19/21 [History] Follow up Appointment(s)/Referral(s): Marielos Macedo MD [STAFF PHYSICIAN] - As Needed Patient Instructions/Handouts: Diverticulosis Diet (GEN), Diverticulosis (DC) Activity/Diet/Wound Care/Special Instructions: Repeat colonoscopy years2026 Discharge Disposition: HOME SELF-CARE
[2021-08-21 10:05] VITALS: RESP 20
[2021-08-21 10:17] VITALS: BP 129/75; PULSE 58
== END 2021-08-21 10:43 | disposition home or self-care (01) ==
LOC: ORWHC2ENDO 08:09
PROVIDERS: ATTEND Surgery Plastic and Reconstructive Surgery
DX: Z12.11 Encounter for screening for malignant neoplasm of colon (principal); Z86.010 Personal history of colon polyps; K57.30 Diverticulosis of large intestine without perforation or abscess without bleeding; K64.0 First degree hemorrhoids; Q43.8 Other specified congenital malformations of intestine; K21.9 Gastro-esophageal reflux disease without esophagitis; M06.9 Rheumatoid arthritis, unspecified; Z87.19 Personal history of other diseases of the digestive system; Z90.49 Acquired absence of other specified parts of digestive tract; Z98.890 Other specified postprocedural states; Z87.891 Personal history of nicotine dependence; Z80.8 Family history of malignant neoplasm of other organs or systems; Z79.899 Other long term (current) drug therapy
CPT/HCPCS: J2001; J3010; J2704; G0105; 45378

== ENCOUNTER → 2021-09-24 | Outpatient (CLI) | payer BC ==
--- NOTE | 2021-09-26 09:22 | MM ---
Reason for exam: screening (asymptomatic). Last mammogram was performed 1 year and 4 months ago. History: Patient is postmenopausal. Family history of breast cancer in paternal aunt at age 65 and breast cancer in maternal aunt at age 55. US discontinued breast bx RT of the right breast, April 05, 2018. Benign US biopsy breast VAD LT of the left breast, February 21, 2016. Stereotactic core biopsy of the right breast, July 21, 2003. Benign excisional biopsy of the right breast, 1994. Took hormonal contraceptives for 8 years beginning at age 20. Physical Findings: A clinical breast exam by your physician is recommended on an annual basis and results should be correlated with mammographic findings. MG Screening Mammo w CAD Bilateral CC and MLO view(s) were taken. Prior study comparison: June 04, 2020, bilateral MG screening mammo w CAD. Finding: There are stable typically benign coarse calcifications in the right breast. Previous mammotome biopsy in the left breast. No significant changes in finding since June 04, 2020. ASSESSMENT: Benign, BI-RAD 2 RECOMMENDATION: Routine screening mammogram of both breasts in 1 year.
== END | disposition home or self-care (01) ==
LOC: RADMAMWWP 08:07
PROVIDERS: ATTEND Family Medicine
DX: Z12.31 Encounter for screening mammogram for malignant neoplasm of breast (principal); Z78.0 Asymptomatic menopausal state; Z80.3 Family history of malignant neoplasm of breast
CPT/HCPCS: 77067

== ENCOUNTER 2022-04-23 14:25 | Emergency (ER) | payer BC ==
[2022-04-23 14:35] VITALS: TEMP 97.6
[2022-04-23 15:05] LABS: Basophils % (A) 0 %; Eosinophils # (A) 0.1 k/uL (0-0.7); Eosinophils % (A) 2 %; HCT 39.9 % (34.0-46.0); HGB 13.6 gm/dL (11.4-16.0); Lymphocytes # (A) 1.2 k/uL (1.0-4.8); Lymphocytes % (A) 21 %; MCH 30.7 pg (25.0-35.0); MCHC 34.2 g/dL (31.0-37.0); MCV 89.7 fL (80.0-100.0); Mean Platelet Volume 7.2; Monocytes # (A) 0.4 k/uL (0-1.0); Monocytes % (A) 7 %; Neutrophils % (A) 70 %; Platelet Count 257 k/uL (150-450); RBC 4.44 m/uL (3.80-5.40); RDW 12.6 % (11.5-15.5); WBC 5.7 k/uL (3.8-10.6)
--- NOTE | 2022-04-23 15:11 | ED ---
Chest Pain HPI - General Chief Complaint: Chest Pain Stated Complaint: chest & back pain Time Seen by Provider: 04/23/22 14:45 Source: patient Mode of arrival: ambulatory Limitations: no limitations - History of Present Illness Initial Comments: This patient is a 56-year-old woman who presents to have evaluation for substernal chest pain that radiates to her back. It is been going on intermittently for approximately one week. She had traveled to [place] and noticed it then. The patient states that it has a burning character. It can come on and last for a number of hours or just for a few minutes. It is intermittent. She states that it might be a little worse in relation to eating but has not noted any other modifying factors. She had gone to see her primary physician today Dr. Patel who sent her here "to have a scan." MD Complaint: chest pain -: week(s) Onset: during rest Pain Location: substernal Pain Radiation: back Severity: moderate Quality: other (Burning) Consistency: intermittent Improves With: nothing Worsens With: eating Context: recent travel Treatments Prior to Arrival: none - Related Data Home Medications Medication Instructions Recorded Confirmed metHOTREXate sodium [Methotrexate] 12.5 mg PO MO 08/17/17 04/23/22 Omeprazole 20 mg PO DAILY 08/19/21 04/23/22 Folic Acid 1 mg PO DAILY 04/23/22 04/23/22 Allergies Allergy/AdvReac Type Severity Reaction Status Date / Time No Known Allergies Allergy Verified 04/23/22 16:28 Review of Systems ROS Statement: Those systems with pertinent positive or pertinent negative responses have been documented in the HPI. ROS Other: All systems not noted in ROS Statement are negative. Constitutional: Denies: fever, chills Respiratory: Denies: cough, dyspnea, wheezes, hemoptysis Cardiovascular: Reports: chest pain. Denies: palpitations, orthopnea, edema, syncope Gastrointestinal: Denies: abdominal pain, nausea, vomiting, diarrhea, constipation Genitourinary: Denies: dysuria, hematuria Musculoskeletal: Denies: back pain Skin: Denies: rash Neurological: Denies: headache, weakness EKG Findings - EKG Results: EKG: interpreted by GUERDA, WNL, sinus rhythm (Rate 74 bpm), normal axis, normal ST/T - Blocks, Smock, Hypertrophy, ST Abn: Chamber hypertrophy or enlargement: only voltage criteria for left ventricular hypertrophy Past Medical History Past Medical History: GERD/Reflux, Rheumatoid Arthritis (RA) Additional Past Medical History / Comment(s): diverticulitis History of Any Multi-Drug Resistant Organisms: None Reported Past Surgical History: Breast Surgery, Cholecystectomy, Uterine Ablation Additional Past Surgical History / Comment(s): 2015-benign us core bx left breast. 2003-benign stereo bx right breast. 1994-benign excisional biopsy right breast. Past Anesthesia/Blood Transfusion Reactions: No Reported Reaction Past Psychological History: No Psychological Hx Reported Smoking Status: Former smoker Past Alcohol Use History: Occasional Past Drug Use History: None Reported - Past Family History Father Family Medical History: Cancer Additional Family Medical History / Comment(s): MELENOMA General Exam Limitations: no limitations General appearance: alert, in no apparent distress Head exam: Present: atraumatic, normocephalic Eye exam: Present: normal appearance. Absent: scleral icterus, conjunctival injection Neck exam: Present: normal inspection Respiratory exam: Present: normal lung sounds bilaterally. Absent: respiratory distress, wheezes, rales, rhonchi, stridor Cardiovascular Exam: Present: regular rate, normal rhythm, normal heart sounds. Absent: systolic murmur, diastolic murmur, rubs, gallop GI/Abdominal exam: Present: soft. Absent: distended, tenderness, guarding, rebound, rigid, mass Extremities exam: Present: normal inspection, normal capillary refill. Absent: pedal edema, calf tenderness Back exam: Present: normal inspection. Absent: CVA tenderness (R), CVA tenderness (L) Neurological exam: Present: alert Skin exam: Present: warm, dry, intact, normal color. Absent: rash Course Vital Signs 04/23/22 04/23/22 04/23/22 14:31 15:39 18:27 Temperature 97.6 F Pulse Rate 79 81 70 Respiratory 20 18 18 Rate Blood Pressure 129/86 145/77 156/84 O2 Sat by Pulse 100 96 96 Oximetry Disposition Clinical Impression: Chest pain Disposition: HOME SELF-CARE Condition: Good Instructions (If sedation given, give patient instructions): Chest Pain (ED) Is patient prescribed a controlled substance at d/c from ED?: No Referrals: Dieudonne Patel MD [Primary Care Provider] - 1-2 days
[2022-04-23 15:17] LABS: Albumin 4.5 g/dL (3.5-5.0); Calcium 9.2 mg/dL (8.4-10.2); Magnesium 2.2 mg/dL (1.6-2.3); Total Bilirubin 0.5 mg/dL (0.2-1.3); Total Protein 7.4 g/dL (6.3-8.2)
[2022-04-23 15:30] LABS: INR 0.9 (<1.2); Partial Thromboplastin Time 22.3 sec (22.0-30.0); Prothrombin Time 10.2 sec (9.0-12.0)
[2022-04-23 15:41] VITALS: RESP 18
--- NOTE | 2022-04-23 15:44 | XR ---
EXAMINATION TYPE: XR chest 2V DATE OF EXAM: 04/23/2022 COMPARISON: 06/26/2016 INDICATION: Chest pain shoulder pain TECHNIQUE: Frontal and lateral views of the chest were obtained. FINDINGS: The heart size is normal. The pulmonary vasculature is normal. The lungs are clear. IMPRESSION: 1. No acute pulmonary process.
[2022-04-23 18:29] VITALS: BP 156/84; PULSE 70
--- NOTE | 2022-04-23 19:06 | CT ---
EXAMINATION TYPE: CT angio thor/abd pel aorta DATE OF EXAM: 04/23/2022 COMPARISON: 02/12/2021 HISTORY: back and chest pian x1 week CT DLP: 2407.8 mGycm Automated exposure control for dose reduction was used. CONTRAST: Performed with IV Contrast, patient injected with 100 mL of Isovue 370. Images obtained from the thoracic inlet to the floor of the pelvis without and subsequently with the IV contrast. There are 3-D post processed images. There is no mediastinal adenopathy. There are no hilar masses. Heart size is normal. No pericardial e ffusion. There is no filling defect in the pulmonary arteries. Thoracic aorta is intact. No aneurysm or dissection. Liver spleen stomach pancreas appear intact. There are clips from cholecystectomy. The bile ducts are not dilated. There is no adrenal mass. Kidneys have normal size and contour. No hydronephrosis. Ther e is 2 cm cortical cyst lateral right kidney. No retroperitoneal adenopathy. Appendix is posterior an d appears normal. The bladder distends smoothly. No inguinal hernia. There are multiple sigmoid diver ticula. No diverticulitis. No mesenteric edema. No ascites or free air. No sign of a bowel obstructio n. Abdominal aorta is intact. There is arterial flow in the celiac artery and superior mesenteric artery . There is arterial flow in the renal and iliac and femoral arteries. No aneurysm or dissection. No s ign of hemodynamic stenosis. IMPRESSION: There is sigmoid diverticulosis without diverticulitis. No evidence of arterial aneurysm or dissectio n. No evidence of hemodynamic stenosis. Small hiatal hernia. No evidence of pulmonary embolism. No suspicious pulmonary mass.
== END 2022-04-23 19:19 | disposition home or self-care (01) ==
LOC: EC 14:25
DX: R07.9 Chest pain, unspecified (principal); K21.9 Gastro-esophageal reflux disease without esophagitis; M06.9 Rheumatoid arthritis, unspecified; Z87.891 Personal history of nicotine dependence; Z79.899 Other long term (current) drug therapy
CPT/HCPCS: 36415; 93005; 85379; 80053; 83735; 84484; 85025; 85610; 85730; 71046; 71275; 74174; 99285; Q9967

== ENCOUNTER → 2022-10-08 | Outpatient (CLI) | payer BC ==
--- NOTE | 2022-10-09 16:54 | MM ---
Reason for Exam: Screening (asymptomatic). Last mammogram was performed 1 year(s) and 1 month(s) ago. Patient History: Menarche at age 15. First Full-Term at age 29. Postmenopausal. Hormonal Contraceptives for 8 years from age 20 until age 28. 1994, Benign Excisional Biopsy on the right side. 02/21/2016, Benign Core Biopsy on the left side. 07/21/2003, Stereotactic Core Biopsy on the Right side. 04/05/2018, US discontinued breast bx RT on the right side. Paternal aunt had breast cancer, age 65. Maternal aunt had breast cancer, age 55. Risk Values: Donya 5 year model risk: 1.8%. NCI Lifetime model risk: 12.2%. Prior Study Comparison: 03/29/2019 Bilateral Diagnostic Mammogram, [facility]. 06/04/2020 Bilateral Screening Mammogram, [facility]. 09/24/2021 Bilateral Screening Mammogram, [facility]. Tissue Density: There are scattered fibroglandular densities. Findings: Analyzed By CAD. Pattern appears symmetrical. Benign appearing grouped calcifications within the right breast, unchanged. Core marker is within the left breast. No suspicious groups of microcalcifications, spiculated or lobular masses, architectural distortion or other secondary signs of malignancy are mammographically apparent. Overall Assessment: Benign, BI-RAD 2 Management: Screening Mammogram of both breasts in 1 year. A negative mammogram report should not preclude additional follow up of suspicious palpable abnormalities. Patient should continue monthly self breast exam. A clinical breast exam by your physician is recommended on an annual basis and results should be correlated with mammographic findings. Electronically signed and approved by: Pankaj Sanchez D.O. Radiologis
== END | disposition home or self-care (01) ==
LOC: RADMAMWWP 08:06
PROVIDERS: ATTEND Family Medicine
DX: Z12.31 Encounter for screening mammogram for malignant neoplasm of breast (principal); Z78.0 Asymptomatic menopausal state; Z80.3 Family history of malignant neoplasm of breast; Z98.890 Other specified postprocedural states
CPT/HCPCS: 77067

== ENCOUNTER → 2022-10-16 | Outpatient (CLI) | payer BC ==
--- NOTE | 2022-10-16 15:58 | XR ---
EXAMINATION TYPE: XR chest 2V DATE OF EXAM: 10/16/2022 3:52 PM COMPARISON: Chest radiographs from 04/23/2022 TECHNIQUE: XR chest 2V Frontal and lateral views of the chest. CLINICAL INDICATION:Female, 56 years old with history of R07.89; FINDINGS: Lungs/Pleura: There is no evidence of pleural effusion, focal consolidation, or pneumothorax. Pulmonary vascularity: Unremarkable. Heart/mediastinum: Cardiomediastinal silhouette is unremarkable. Musculoskeletal: No acute osseous pathology. Other findings: Surgical clips in the upper abdomen. IMPRESSION: No acute cardiopulmonary disease/process.
== END | disposition home or self-care (01) ==
LOC: RADXRMAIN 15:24
PROVIDERS: ATTEND Family Medicine
DX: R07.89 Other chest pain (principal)
CPT/HCPCS: 71046

== ENCOUNTER → 2023-10-12 | Outpatient (CLI) | payer BC ==
--- NOTE | 2023-10-12 17:00 | MM ---
Reason for Exam: Screening (asymptomatic). Last screening mammogram was performed 12 month(s) ago. Patient History: Menarche at age 15. First Full-Term at age 29. Postmenopausal. Patient has history of breast feeding. Hormonal Contraceptives for 8 years from age 20 until age 28. 1994, Benign Excisional Biopsy on the right side. 02/21/2016, Benign Core Biopsy on the left side. 07/21/2003, Stereotactic Core Biopsy on the Right side. 04/05/2018, US discontinued breast bx RT on the right side. Paternal aunt had breast cancer, age 65. Maternal aunt had breast cancer, age 55. Risk Values: Donya 5 year model risk: 1.9%. NCI Lifetime model risk: 12.0%. Prior Study Comparison: 06/04/2020 Bilateral Screening Mammogram, [facility]. 09/24/2021 Bilateral Screening Mammogram, [facility]. 10/08/2022 Bilateral MG screening mammo w CAD, [facility]. Tissue Density: There are scattered areas of fibroglandular density. Findings: Analyzed By CAD. The pattern is symmetrical. There are some grouped coarse calcifications within the right breast, stable from comparison. Core marker is within the left breast. Some underlying chronic nodularity appears to be present. No suspicious groups of microcalcifications, spiculated or lobular masses, architectural distortion or other secondary signs of malignancy are mammographically apparent. Overall Assessment: Benign, BI-RAD 2 Management: Screening Mammogram of both breasts in 1 year. A negative mammogram report should not preclude additional follow up of suspicious palpable abnormalities. Patient should continue monthly self breast exam. A clinical breast exam by your physician is recommended on an annual basis and results should be correlated with mammographic findings. Electronically signed and approved by: Pankaj Sanchez D.O. Radiologis
== END | disposition home or self-care (01) ==
LOC: RADMAMWWP 07:43
PROVIDERS: ATTEND Family Medicine
DX: Z12.31 Encounter for screening mammogram for malignant neoplasm of breast (principal); Z78.0 Asymptomatic menopausal state; Z80.3 Family history of malignant neoplasm of breast
CPT/HCPCS: 77067

== ENCOUNTER → 2024-04-26 | Outpatient (CLI) | payer BC ==
--- NOTE | 2024-04-26 10:06 | CA ---
Exercise Stress Test Report Name: Cynthia Sue Exam Date: 04/26/2024 09:21 Exam Location: [facility] Ht (in): 65 Wt (lb): 240 BSA: 2.14 Ordering Phys: Dieudonne Patel MD Referring Phys: Dieudonne Patel MD Technologist: Juan Diego Mas Age: 58 Gender: F : 1965 Procedure CPT: Indications: A ICD-10 Codes: Chest pain and palpitations thank you Patient History: Medications: Meds past 24 hrs: Pretest Chest Pain: STRESS TEST Shahriar Protocol Exercise Duration (min:sec): 07:[address] Depressions (mm): Angina Score: Salamanca Score: Resting HR (bpm): 92 Peak HR (bpm): 155 Resting BP (mmHg): 128 / 81 Peak BP (mmHg): 182 / 80 MPHR: 163 Target HR: 139 % MPHR: 95 METS: 8.9 Total Dose: Peak Dose: Atropine: Double Product: 05458 BP Response: Stress Termination: Reached target heart rate Stress Symptoms: No chest pain or symptoms Stress Summary: ECG ANALYSIS Resting ECG: Normal sinus rhythm normal axis normal intervals Stress ECG: Exercised on Shahriar protocol for 7 minutes achieving 8 METS 85% of predicted maximal heart rate without chest pain or diagnostic ST segment depression CONCLUSIONS Average exercise tolerance Negative stress test by EKG criteria Dr. Mauricio Nunez MD (Electronically Signed) Final Date: 26 April 2024 10:05
--- NOTE | 2024-04-26 12:43 | CA ---
Transthoracic Echo Report Name: Cynthia Sue Age: 58 Gender: F : 1965 Exam Date: 04/26/2024 11:38 Exam Location: [facility] Ht (in): 53 Wt (lb): 240 Ordering Physician: Dieudonne Patel MD Attending/Referring Phys: Dieudonne Patel MD Site Identification Specialist Sherri Coats [facility] Procedure CPT: Indications: R00.2 palpitations Cardiac Hx: Technical Quality: Fair Contrast 1: Total Dose (mL): Contrast 2: Total Dose (mL): MEASUREMENTS (Male / Female) Normal Values 2D ECHO LV Diastolic Diameter PLAX 3.9 cm 4.2 - 5.9 / 3.9 - 5.3 cm IVS Diastolic Thickness 1.2 cm 0.6 - 1.0 / 0.6 - 0.9 cm LVPW Diastolic Thickness 0.9 cm 0.6 - 1.0 / 0.6 - 0.9 cm LV Relative Wall Thickness 0.5 LVOT Diameter 2.0 cm Aortic Root Diameter 2.9 cm LV Diastolic Volume MOD 4C 102.7 cm??? LV Systolic Volume MOD 4C 44.2 cm??? LV Ejection Fraction MOD 4C 56.9 % LV Cardiac Index MOD 4C 2216.4 cm???/min???m??? LV Diastolic Length 4C 8.1 cm LV Systolic Length 4C 6.9 cm LV Cardiac Index 4C AL 2412.0 cm???/min???m??? LV Diastolic Volume MOD 2C 96.8 cm??? LV Systolic Volume MOD 2C 36.8 cm??? LV Ejection Fraction MOD 2C 61.9 % LV Cardiac Index MOD 2C 2271.7 cm???/min???m??? LV Diastolic Length 2C 7.7 cm LV Systolic Length 2C 6.0 cm LV Cardiac Index 2C AL 2525.8 cm???/min???m??? Ascending Aorta Diameter 2.7 cm DOPPLER AV Peak Velocity 170.2 cm/s AV Peak Gradient 11.6 mmHg AV Mean Velocity 109.8 cm/s AV Mean Gradient 5.7 mmHg AV Velocity Time Integral 28.1 cm LVOT Peak Velocity 108.3 cm/s LVOT Peak Gradient 4.7 mmHg LVOT Velocity Time Integral 22.2 cm LVOT Stroke Volume 67.0 cm??? LVOT Stroke Volume Index 36.3 ml/m??? LVOT Cardiac Index 2539.8 cm???/min???m??? AV Area Cont Eq vti 2.4 cm??? AV Area Cont Eq pk 1.9 cm??? Mitral E Point Velocity 35.7 cm/s Mitral A Point Velocity 60.9 cm/s Mitral E to A Ratio 0.6 MV Deceleration Time 256.3 ms MV E' Velocity 4.5 cm/s Mitral E to MV E' Ratio 7.9 MV A' Velocity 6.0 cm/s PV Peak Velocity 105.5 cm/s PV Peak Gradient 4.5 mmHg FINDINGS Left Ventricle Left ventricular ejection fraction is estimated at 55-60 %. Mildly increased septal wall thickness. Left ventricular wall thickness normal. No obvious regional wall motion abnormalities. Right Ventricle Normal right ventricular size and function. Unable to estimate the right ventricular systolic pressure. Right Atrium Normal right atrial size. Left Atrium Mildly increased left atrial area. Mitral Valve Structurally normal mitral valve. No mitral stenosis, regurgitation or prolapse. Aortic Valve Trileaflet aortic valve. No aortic stenosis. Trace aortic regurgitation. Tricuspid Valve Structurally normal tricuspid valve. No tricuspid stenosis. No tricuspid regurgitation. Pulmonic Valve Pulmonic valve not well visualized. No pulmonic stenosis. No pulmonic regurgitation. Pericardium No pericardial effusion. Aorta Normal size aortic root and proximal ascending aorta. CONCLUSIONS Normal LV function Previewed by: Dr. Mauricio Nunez MD (Electronically Signed) Final Date: 26 April 2024 12:42
== END | disposition home or self-care (01) ==
LOC: RADNMMAIN 08:44
PROVIDERS: ATTEND Family Medicine
DX: R00.2 Palpitations (principal)
CPT/HCPCS: 93017; 93306

== ENCOUNTER → 2024-04-27 | Outpatient (CLI) | payer BC ==
--- NOTE | 2024-06-02 08:59 | EM ---
30 Day Event monitor note: Patient wore an event monitor for 30 days from 04/27/2024 through 05/26/2024. Findings: Patient's baseline heart rate was normal sinus rhythm. There were no signficant atrial fibrillation, atrial flutter, or ventricular tachycardia episodes. There were no significant pauses greater than 2 seconds. patient's minimum heart rate was 50 bpm Patient's maximum heart rate was 120 bpm Patient's average heart rate was 78 bpm There were no PACs or PVCs noted 3 patient activated events corresponding with normal sinus rhythm Conclusions: 30 day monitor showing normal sinus rhythm. Patient activated events corresponding with normal sinus rhythm. [facility]
== END | disposition home or self-care (01) ==
LOC: RADECHMAIN 08:07
PROVIDERS: ATTEND Family Medicine
DX: R00.2 Palpitations (principal)
CPT/HCPCS: 93270

== ENCOUNTER → 2024-08-22 | Outpatient (CLI) | payer BC ==
--- NOTE | 2024-08-22 13:35 | XR ---
EXAMINATION TYPE: XR ribs LT w pa chest xray DATE OF EXAM: 08/22/2024 12:05 PM COMPARISON: None. CLINICAL INDICATION: Female, 58 years old with history of R07.81 PLEURODYNIA, pain TECHNIQUE: 2 view(s) obtained left RIBS. Exam supplemented with an AP chest FINDINGS: Heart size is normal. Pulmonary vasculature is normal. Lungs are clear. No pneumothorax is evident. No displaced rib fractures are evident. Follow-up can be performed as clinically indicated IMPRESSION: 1. No acute osseous abnormality left RIBS [facility], , 08/22/2024 1:32 PM
== END | disposition home or self-care (01) ==
LOC: RADXRMAIN 11:45
PROVIDERS: ATTEND Family Medicine
DX: R07.81 Pleurodynia (principal)

== ENCOUNTER → 2024-10-17 | Outpatient (CLI) | payer BC ==
--- NOTE | 2024-10-17 08:36 | MM ---
Reason for Exam: Screening (asymptomatic). Last screening mammogram was performed 12 month(s) ago. Patient History: Menarche at age 15. First Full-Term at age 29. Postmenopausal. Patient has history of breast feeding. Hormonal Contraceptives for 8 years from age 20 until age 28. 1994, Benign Excisional Biopsy on the right side. 02/21/2016, Benign Core Biopsy on the left side. 07/21/2003, Stereotactic Core Biopsy on the Right side. 04/05/2018, US discontinued breast bx RT on the right side. Paternal aunt had breast cancer, age 65. Maternal aunt had breast cancer, age 55. Risk Values: Donya 5 year model risk: 2.0%. NCI Lifetime model risk: 11.7%. Prior Study Comparison: 03/16/2018 Bilateral Screening Mammogram, [facility]. 03/29/2019 Bilateral Diagnostic Mammogram, [facility]. 06/04/2020 Bilateral Screening Mammogram, [facility]. 09/24/2021 Bilateral Screening Mammogram, [facility]. 10/08/2022 Bilateral MG screening mammo w CAD, [facility]. 10/12/2023 Bilateral MG screening mammo w CAD, [facility]. Tissue Density: There are scattered areas of fibroglandular density. Findings: Analyzed By CAD. There is no suspicious group of microcalcifications or new suspicious mass in either breast. Overall Assessment: Negative, BI-RAD 1 Management: Screening Mammogram of both breasts in 1 year. . Patient should continue monthly self-breast exams. A clinical breast exam by your physician is recommended on an annual basis. This exam should not preclude additional follow-up of suspicious palpable abnormalities. Note on Donya scores and lifetime risk: 1. A Donya score greater than 3% is considered moderate risk. If this is the case, consider specialist referral to assess eligibility for a risk reducing agent. 2. If overall lifetime risk for the development of breast cancer is 20% or higher, the patient may qualify for future screening with alternating mammogram and breast MRI. [facility], , 10/17/2024 8:33 AM. Electronically signed and approved by: Umer Lui M.D. Radiologis
== END | disposition home or self-care (01) ==
LOC: RADMAMWWP 08:08
PROVIDERS: ATTEND Family Medicine
DX: Z12.31 Encounter for screening mammogram for malignant neoplasm of breast (principal); R92.323 Mammographic fibroglandular density, bilateral breasts; Z78.0 Asymptomatic menopausal state; Z80.3 Family history of malignant neoplasm of breast; Z92.0 Personal history of contraception
CPT/HCPCS: 77067

== ENCOUNTER → 2024-12-12 | Outpatient (CLI) | payer BC ==
--- NOTE | 2024-12-12 09:16 | CT ---
EXAMINATION TYPE: CT abdomen wo con DATE OF EXAM: 12/12/2024 8:22 AM COMPARISON: 04/23/2022 CLINICAL INDICATION: Female, 58 years old with history of R06.09 DYSPNEA, Hiatal hernia, epigastric p ain TECHNIQUE: Axial images were obtained from above the diaphragm to the pubic rami in the axial plane a t 5 mm thick sections. Reconstructed images are reviewed on the computer in the coronal plane. CONTRAST: mL of . Study performed with Oral Contrast DLP: 880.2 mGycm, Automated exposure control for dose reduction was used. FINDINGS: Limited CT sections are obtained the lung bases. The lung bases are clear. There is a small hiatal hernia present. CT ABDOMEN: Liver: Normal Spleen: Normal Pancreas: Normal Adrenal glands: The adrenal glands are normal. Gallbladder: Surgically absent Kidneys: No masses are evident. No hydronephrosis is present. No cysts are present. No renal stone s evident. Aorta: Normal Inferior vena cava: Normal. Limited CT PELVIS: Loops of bowel within the abdomen and pelvis are normal. There are loops of bowel lacking oral co ntrast limiting bowel evaluation. Appendix: Normal as visualized. Urinary bladder: Normal. IMPRESSION: 1. Small hiatal hernia, stable [facility], , 12/12/2024 9:14 AM
== END | disposition home or self-care (01) ==
LOC: RADCTMAIN 07:29
PROVIDERS: ATTEND Family Medicine
DX: K44.9 Diaphragmatic hernia without obstruction or gangrene (principal)
CPT/HCPCS: 74150